=== PATIENT | male | born 1950 | race Caucasian/White ===

== ENCOUNTER 2019-07-06 03:00 | Emergency (ER) | payer OTHER ==
[~2019-07-06] VITALS: Ht 170.2 cm; Wt 77.1 kg
[2019-07-06 03:00] VITALS: BP 158/82
--- NOTE | 2019-07-06 03:00 | NUR ---
PT BIBA C/O OF SHORTNESS OF BREATHE FOR THE LAST 30 MIN. PER EMT PT WAS SATING AT 90% ON RA. PT WAS GIVEN ALBUTEROL TREATMENT ON AMBULANCE. PT IS ON C-PAP. PT HAS CATHETER PORT TO RIGHT CHEST AND 2 DRESSINGS ON ABDOMEN FOR CHEST DRAINAGE PER . ALLERGIES: UNATTAINABLE AT THIS TIME. MED HX: ESOPHAGEAL CANCER, HTN, AND CHF. SAFETY MEASURES IN PLACE. ERMD AT BEDSIDE.
--- NOTE | 2019-07-06 03:01 | NUR ---
RT AT BEDSIDE
[2019-07-06] MEDS ORDERED: NACL 0.9% 500 ML IV SCH (03:09)
[2019-07-06 03:19] VITALS: BP 158/82
--- NOTE | 2019-07-06 03:30 | NUR ---
PT FAMILY FRIEND AT BEDSIDE
[2019-07-06 03:34] LABS: BASOPHILS % (AUTO) 0.4 % (0.0-2.0); EOSINOPHILS # (AUTO) 0.5 K/uL (0-0.4); EOSINOPHILS % (AUTO) 3.6 % (0.0-4.0); HEMATOCRIT 29.4 % (36-52); HEMOGLOBIN 9.5 g/dL (12.0-18.0); LYMPHOCYTES # (AUTO) 1.9 K/uL (2.0-11.5); LYMPHOCYTES % (AUTO) 14.2 % (20.5-51.1); MEAN CORPUSCULAR HEMOGLOBIN 29 pg (27-31); MEAN CORPUSCULAR HGB CONC 32 g/dL (33-37); MEAN CORPUSCULAR VOLUME 89.8 fL (80-94); MONOCYTES # (AUTO) 0.7 K/uL (0.8-1.0); MONOCYTES % (AUTO) 5.2 % (1.7-9.3); NEUTROPHILS # (AUTO) 10.4 K/uL (1.8-7.7); NEUTROPHILS % (AUTO) 76.6 % (42.2-75.2); PLATELET COUNT (AUTO) 76 K/uL (140-450); RED BLOOD CELL COUNT(AUTO) 3.27 MIL/uL (4.20-6.10); WHITE BLOOD COUNT (AUTO) 13.6 K/uL (4.8-10.8)
--- NOTE | 2019-07-06 03:40 | NUR ---
PER FAMILY FRIEND PT IS HAVING CHEMOTHERAPY EVERY DAY FOR 2 WEEKS WITH 1 WEEK OFF FOR ESOPHAGEAL CANCER.
[2019-07-06 03:49] LABS: ALBUMIN 2.2 g/dL (3.4-5.0); ASPARTATE AMINOTRANSFERASE 25 U/L (15-37); CARBON DIOXIDE 30.9 mmol/L (21-32); CHLORIDE 98 mmol/L (98-107); CREATININE 0.6 mg/dL (0.7-1.3); GLUCOSE 149 mg/dL (74-106); POTASSIUM 3.9 mmol/L (3.5-5.1); SODIUM SERUM 133 mmol/L (136-145); TOTAL BILIRUBIN 0.3 mg/dL (0.0-1.0); UREA NITROGEN, BLOOD 17 mg/dL (7-18)
[2019-07-06 03:50] LABS: PROTHROMBIN TIME 12.6 secs (10.8-13.4)
[2019-07-06] MEDS ORDERED: PIPERACILLIN/TAZOBACTAM 3.375 GM in DEXTROSE 5% 50 ML IV ONE (03:50)
[2019-07-06] MEDS ORDERED: PENT400T29 PO (03:51)
[2019-07-06] MEDS ORDERED: MSCON15 PO (03:52)
[2019-07-06] MEDS ORDERED: CARV25TA PO (03:53)
[2019-07-06] MEDS ORDERED: VITA1TAB44 PO (03:53)
[2019-07-06] MEDS ORDERED: FERR-252 PO (03:54)
--- NOTE | 2019-07-06 03:55 | NUR ---
PT DAUGHTER AT BEDSIDE
[2019-07-06] MEDS ORDERED: ONDA8ODT PO (04:01)
--- NOTE | 2019-07-06 04:10 | NUR ---
PER DAUGHTER PT WAS SEEN 06/22/19 AT [facility] FOR SHORTNESS OF BREATHE. PT WAS ADMITTED TO [facility] 06/26/19 AND DISCHARGED 07/04/19 AGAIN FOR DIFFICULTY BREATHING. DAUGHTER STATES "AT [facility] THEY GAVE HIM ALL KINDS OF ANTIBIOTICS AND THE ANTIBIOTICS DID NOTHING, HE STARTED CHEMO AND THAT IS WHAT HELPED." PT IS DNR AND DAUGHTER IS POWER OF CUTTING MACHINE FIXER. DEEPTI MADE AWARE.
--- NOTE | 2019-07-06 04:15 | NUR ---
PT RIPPED OFF BIPAP MACHINE. PT STATED "I DONT WANT IT ON ANYMORE ITS NOT HELPING ME." PT SWITCHED TO NC 4L. ERMD NOTIFIED.
--- NOTE | 2019-07-06 04:15 | NUR ---
PT AND PT DAUGHTER REFUSED ANTIBIOTICS. ERMD MADE AWARE.
[2019-07-06] MEDS ORDERED: LORazepam 2 MG/ML VIAL IVP ONE (04:20)
[2019-07-06 04:33] LABS: RED CELL DISTRIBUTION WIDTH 24.7 % (11.6-13.7)
--- NOTE | 2019-07-06 04:40 | NUR ---
PT UNABLE TO GIVE URINE AT THIS TIME. ERMD NOTIFIED.
--- NOTE | 2019-07-06 05:17 | NUR ---
Spoke to March from [facility]. .
--- NOTE | 2019-07-06 05:30 | NUR ---
PT RESTING IN BED COMFORTABLY. VSS. WILL CONTINUE TO MONITOR.
[2019-07-06 05:44] LABS: APPEARANCE,URINE CLEAR (CLEAR); BILIRUBIN,URINE NEGATIVE (NEGATIVE); BLOOD, URINE NEGATIVE (NEGATIVE); COLOR,URINE YELLOW (YELLOW); LEUKOCYTE ESTERASE ,URINE NEGATIVE (NEGATIVE); NITRITE, URINE NEGATIVE (NEGATIVE); UGLUCOSE NEGATIVE (NEGATIVE)
[2019-07-06 05:52] LABS: CALCIUM OXALATE CRYSTALS,UR 0-10 /HPF (None Seen); RBC,URINE NONE SEEN /HPF (0-5); WBC,URINE 0-5 /HPF (0-5)
--- NOTE | 2019-07-06 05:55 | NUR ---
Rhonda watt in [facility] - 07/06/19 at 0556 by ANGELA PT WEANED TO 2L NC. OXYGEN SATURATION AT 100% ON 2L NC.
--- NOTE | 2019-07-06 05:55 | NUR ---
PT WEANED TO 2L NC. OXYGEN SATURATION AT 97% ON 2L NC.
--- NOTE | 2019-07-06 06:30 | NUR ---
Patient to be transferred to [facility]. Is being transferred due to Esophageal Cancer and Pulmonary Edema. Receiving facility has accepting physician and available space. ER physician has signed transfer form. Patient or responsible republican has agreed to transfer and signed form. Patient belongings inventoried and will be sent with patient. Copy of nursing notes, lab reports, EKG, Physicians Orders and X-rays to be sent with patient. Report called to CARINE Elizondo at receiving facility. Waiting for ETA on transport.
--- NOTE | 2019-07-06 06:30 | NUR ---
Note undone in EDM - 07/06/19 at 0706 by ANGELA Patient to be transferred to [facility]. Is being transferred due to Esophageal Cancer and Pulmonary Edema. Receiving facility has accepting physician and available space. ER physician has signed transfer form. Patient or responsible constitution party has agreed to transfer and signed form. Patient belongings inventoried and will be sent with patient. Copy of nursing notes, lab reports, EKG, Physicians Orders and X-rays to be sent with patient. Report called to CARINE Elizondo at receiving facility. Waiting for ETA
--- NOTE | 2019-07-06 06:55 | NUR ---
Report given to CARINE Elizondo at [facility]. Call back for ETA .
--- NOTE | 2019-07-06 06:55 | NUR ---
PT to be transferred to [facility]. Room 2146. Accepting , Dr. Mora. [phone].
--- NOTE | 2019-07-06 07:10 | NUR ---
Transfer of Care and Report given to CARINE Tidwell
--- NOTE | 2019-07-06 07:18 | NUR ---
vss taken. family bedside. waiting for transport eta at this time
--- NOTE | 2019-07-06 07:21 | NUR ---
[facility] IS 60 MIN FOR TRANSPORT
--- NOTE | 2019-07-06 08:25 | NUR ---
[facility] at bedside.
[2019-07-06 08:28] VITALS: BP 125/64
--- NOTE | 2019-07-06 08:30 | NUR ---
Patient to be transferred to [facility]. Is being transferred due to INSURANCE. Receiving facility has accepting physician and available space. ER physician has signed transfer form. Patient or responsible democrat has agreed to transfer and signed form. Patient belongings inventoried and will be sent with patient. Copy of nursing notes, lab reports, EKG, Physicians Orders and X-rays to be sent with patient. Report called to MAAME HAWK at receiving facility. ambulance service has ARRIVED.
== END 2019-07-06 08:30 | disposition short-term general hospital (02) ==
LOC: MED 03:00
DX: C15.9 Malignant neoplasm of esophagus, unspecified (principal); R09.02 Hypoxemia; I10 Essential (primary) hypertension; Z66 Do not resuscitate; Z98.890 Other specified postprocedural states; Z79.899 Other long term (current) drug therapy
CPT/HCPCS: 36415; 36600; 71045; 80053; 81001; 82803; 83605; 83880; 84484; 85025; 85610; 85730; 87040; 87086; 93005; 96374; 99285; J2060; J7030; Q0092